=== PATIENT | male | born 1935 | race Caucasian/White ===

== ENCOUNTER 2016-11-06 12:50 | Emergency (ER) | payer OTHER ==
[~2016-11-06] VITALS: Ht 167.6 cm; Wt 70.5 kg
[~2016-11-06 12:50] MED LIST: ATOR-26 PO; CALC0.5C2 PO; CHOL1TAB53 PO; CRD200 PO; HYDR-389 PO; METO25TA3 PO; NTRGSL/4 UT; PRS5 PO; SPIR25TA89 PO; TERA5CAP PO; VITA400C15 PO; WARF4TAB43 PO
[2016-11-06 12:55] VITALS: Ht 167.6 cm; Wt 70.5 kg
[2016-11-06] MEDS ORDERED: DUTA0.5C PO (13:45)
[2016-11-06] MEDS ORDERED: TAMS0.4C38 PO (13:45)
--- NOTE | 2016-11-06 13:46 | EMERGENCY ROOM VISIT NOTE ---
ED Visit Note First contact with patient: 13:00 CHIEF COMPLAINT: Requests medication prescription refill HISTORY OF PRESENT ILLNESS: Patient is a 81-year-old white male who presents to emergency department requesting a refill of his Combodart (dutasteride 0.5 mg /tamulosin 0.4 mg) prescription. He is on this medication for BPH. He reports that he has been living in [place] with his daughter for the last 18 month. He will return here locally to attend a wedding and to renew his passport. He has one dose of the medication left. He reports that he is not sure how long he is going to be back in the [facility] and does not have a local PCP. He states that he is otherwise taking his regular medications as prescribed. PMH: Electronic medical records are reviewed and summarized as above/below. See Problem List. SOCIAL HISTORY: Patient lives at home. PHYSICAL EXAM: Vital Signs: Reviewed Nurse's notes. The patient appears well and is in no acute distress. There is no slurring of speech, pupils are round equal and react to light, and the gait is normal. The patient is alert, oriented, and coherent. ED course: The patient was seen and evaluated as above. He was given 2 separate prescriptions for the dutasteride and tamulosin, as it is unlikely that a regular pharmacy will have the combination Marybeth in stock, and the patient does not want to wait for them to order it. He was given a 30 day supply with one refill, and instructed that anything further will need to come from his PCPs office. He expresses understanding of this and was agreeable. Medication reconciliation: I attest that I have personally reviewed the patient' s current medication list. Blood pressure screening : Patient was found to have normal blood pressure on screening and does not require follow-up. Problem List Medical Problems: (1) Atrial fibrillation Status: Chronic (2) Benign hypertension Status: Chronic (3) Benign prostatic hyperplasia Status: Chronic (4) Carotid artery stenosis Status: Chronic (5) Chest pain Status: Resolved (6) Chronic kidney disease stage 3 Status: Chronic (7) Coronary artery disease Status: Chronic (8) Gastroesophageal reflux disease Status: Chronic (9) History of stroke Status: Chronic (10) Implantation of cardiac pacemaker Status: Chronic (11) Implantation of internal cardiac defibrillator Status: Chronic (12) Ischemic cardiomyopathy Status: Chronic (13) Old myocardial infarction Status: Resolved (14) Paroxysmal ventricular tachycardia Status: Chronic (15) Rheumatic fever Status: Resolved (16) Right bundle branch block Status: Chronic (17) Systolic heart failure Status: Chronic Current/Historical Medications Scheduled Amiodarone Hcl (Cordarone *), 200 MG PO QAM Atorvastatin (Lipitor), 80 MG PO HS Calcitriol (Rocaltrol), 0.25 MCG PO -- Cholecalciferol (D 1000), 2,000 UNITS PO DAILY Dutasteride (Avodart), 1 CAP PO DAILY Finasteride (Proscar), 5 MG PO DAILY Metoprolol Succ (Toprol Xl) (Toprol-Xl), 25 MG PO QAM Nitroglycerin (Nitrostat), 0.4 MG UT PRN Spironolactone (Aldactone), 25 MG PO DAILY Tamsulosin Hcl (Flomax), 0.4 MG PO DAILY Terazosin Hcl (Hytrin), 5 MG PO DAILY Tocopheryl Acet,Dl-Alpha (Vitamin E), 400 INTER.UNIT PO DAILY Warfarin Sodium (Warfarin Sodium), 2 MG PO UD Scheduled PRN Hydroxyzine Hcl (Atarax), 10 MG PO Q8 PRN for Itching Allergies Coded Allergies: Morphine (Verified Adverse Reaction, Intermediate, HALLUCINATIONS, 11/11/13) Niacinamide (Verified Adverse Reaction, Intermediate, MIGRAINE, 11/11/13) Pantothenic Acid (Verified Adverse Reaction, Intermediate, MIGRAINE, ) Pyridoxine (Verified Adverse Reaction, Intermediate, MIGRAINE, 11/11/13) Riboflavin (Verified Adverse Reaction, Intermediate, MIGRAINE, 11/11/13) Thiamine (Verified Adverse Reaction, Intermediate, MIGRAINE, 11/11/13) Banana (Verified Adverse Reaction, Unknown, HEADACHE, 11/11/13) Duck Feathers (Verified Adverse Reaction, Unknown, HEADACHE, 11/11/13) Hard Cheese (Verified Adverse Reaction, Unknown, HEADACHE, 11/11/13) Lactose (Verified Adverse Reaction, Unknown, HEADACHE, 11/11/13) Mushroom (Verified Adverse Reaction, Unknown, HEADACHE, 11/11/13) POLLEN (Verified Adverse Reaction, Unknown, HEADACHE, 11/11/13) Tobacco (Verified Adverse Reaction, Unknown, HEADACHE, 11/11/13) Yeast (Verified Adverse Reaction, Unknown, HEADACHE, 11/11/13) Vital Signs Date Time Temp Pulse Resp B/P (MAP) Pulse Ox O2 Delivery O2 Flow Rate FiO2 11/06/16 14:07 36.9 65 18 122/80 97 11/06/16 12:55 36.9 67 18 127/83 96 Room Air Departure Information Impression Primary Impression: Medication refill Prescriptions Tamsulosin Hcl (FLOMAX) 0.4 Mg Cap 0.4 MG PO DAILY for 30 Days, #30 CAP 1 Refill Prov: Mihaela Crow PA 11/06/16 Dutasteride (AVODART) 0.5 Mg Cap 1 CAP PO DAILY for 30 Days, #30 CAP 1 Refill Prov: Mihaela Crow PA 11/06/16 Referrals Eunice Ojeda M.D. (PCP) Patient Instructions My [facility] Additional Instructions Avodart (dutasteride) 0.5mg daily. Flomax (tamsulosin) 0.4mg daily. Follow-up with your family physician for further care and management and any further prescription refills.
[2016-11-06 14:07] VITALS: BP 122/80; PULSE 65; TEMP 36.9; O2SAT 97
== END 2016-11-06 14:09 | disposition home or self-care (01) ==
LOC: C.EDB 12:51 → C.EDD 14:09
DX: Z76.0 Encounter for issue of repeat prescription (principal); I48.91 Unspecified atrial fibrillation; I10 Essential (primary) hypertension; N40.0 Benign prostatic hyperplasia without lower urinary tract symptoms; N18.3 Chronic kidney disease, stage 3 (moderate); I25.10 Atherosclerotic heart disease of native coronary artery without angina pectoris; K21.9 Gastro-esophageal reflux disease without esophagitis; I25.2 Old myocardial infarction; Z79.01 Long term (current) use of anticoagulants